=== PATIENT | female | born 1980 | race Caucasian/White ===

== ENCOUNTER 2022-03-22 17:26 | Emergency (ER) | payer MEDICAID, SELFPAY ==
[2022-03-22] VITALS (20 sets, daily range): BP systolic 121–161; BP diastolic 80–97; PULSE 95–192; RESP 6–20; TEMP 36.6; O2SAT 95–99
--- NOTE | 2022-03-22 17:15 | RT.EKG_ITS ---
APPROVED REPORT Exam: Resting ECG Reason for Exam: heart racing Patient Location: E HR:186 bpm ECG Measurements Heart Rate 186 AXIS IN 114 P -3 QRSd 88 QRS 22 QT 284 T 72 QTc 499 Conclusion Supraventricular tachycardia...V-rate>(220-age), QRSd<120 Repolarization abnormality, prob rate related...ST dep, T neg, tachycardia. SVT. 2mm ST depression in I, aVL, V3-6. No STEMI. I have reviewed and interpreted ECG and agree with software generated interpretation.
--- NOTE | 2022-03-22 17:45 | DI.RAD_ITS ---
Exam(s) XR PORTABLE CHEST AP EXAM: XR PORTABLE CHEST AP CLINICAL HISTORY: palpitations, r/o acute disease TECHNIQUE: 2D digital imaging was performed of the chest. One image was obtained. An AP view was ob tained. COMPARISON: No exams were available for comparison FINDINGS: MEDIASTINUM: Normal. HEART: Normal. PULMONARY VASCULATURE: Normal. LUNGS: Clear. PLEURAL SPACE: No pleural effusion or pneumothorax. BONE:Within normal limits for the patient's age. OTHER FINDINGS:Normal. IMPRESSION: No acute pulmonary findings. DATA REPOSITORY: RADIATION DOSE DELIVERED:
--- NOTE | 2022-03-22 17:45 | RT.EKG_ITS ---
APPROVED REPORT Exam: Resting ECG Reason for Exam: chest pain Patient Location: E HR:100 bpm ECG Measurements Heart Rate 100 AXIS RI 161 P 46 QRSd 91 QRS 35 QT 385 T 11 QTc 497 Conclusion Sinus tachycardia...rate> 99. Sinus. Normal axis. No STEMI. I have reviewed and interpreted ECG and agree with software generated interpretation.
[2022-03-22] MEDS: Adenosine 6 MG/2 ML VIAL (17:48)
--- NOTE | 2022-03-22 17:52 | W.ED.GENAD ---
Discharge Plan Disposition Patient Disposition: HOME Condition: Improving Discharge Details Clinical Impression: SVT (supraventricular tachycardia) Primary Care Provider: Elvia Navas ED Provider: Christina Cameron Home Meds and New Rx's Prescriptions: New metoprolol succinate 25 mg tablet extended release 24 hr 12.5 mg PO DAILY Qty: 30 0RF Discharge Instructions Instructions: Supraventricular Tachycardia (ED) Additional Instructions: Your symptoms today were due to an abnormal heart rhythm called supraventricular tachycardia. Outside of underlying heart disease, this can also be caused by caffeine, alcohol, stress or possibly heavy exertional activity. An order for an order for an outpatient radiation monitor has been placed. You will be contacted by the hospital regarding placement of this monitor. A prescription for the medication metoprolol was sent electronically to your pharmacy to take as directed if you develop any further symptoms of palpitations consistent with your episode today. You can try Valsalva maneuvers such as bearing down or blowing through a straw before taking this medication. Follow-up with your primary care doctor next week for reevaluation and for referral to cardiology for further evaluation if indicated. Return immediately to the emergency department if you develop any worsening or new concerning symptoms. Discharge Orders Other Ambulatory Orders: 14 Day [employer] (Routine) Timeframe: 10 Day Facility: [facility] - Location: Respiratory Therapy Ordered By: Christina Cameron Discharge Data Discharge Date/Time-TO BE ENTERED AT DEPARTURE: 03/22/22 20:19 Discharge Physician: Christina Cameron Medical Decision Making 1740 -- 41-year-old female with history of obesity and reported heart murmur presents for lightheadedness, palpitations and chest pain that started after biking today. Heart rate as high as 190s on the monitor on arrival. EKG appears consistent with SVT. No improvement with modified Valsalva maneuver x2. Her blood pressure is within normal limits. She is alert and oriented x3. She was given 6 mg of adenosine IV with conversion of rhythm to sinus with heart rate low 100s. Patient did endorse chest pain on arrival so will obtain screening labs, chest x-ray and give IV fluids. Labs and imaging reviewed. White blood cell count 15. Potassium 3.3, which was repleted PO. Anion gap 15 which normalized after IV fluids. Troponin negative. Chest x-ray negative for acute disease. 1999 -- Patient remains hemodynamically stable. Heart rate 80s. Blood pressure within normal limits. Pt states she feels much better and feels comfortable going home. Case discussed with [facility] cardiology who recommends Zio patch if possible or other radiation monitor outpatient -- If patient willing to take medication, can start on metoprolol succinate 12.5 mg once daily or if she would rather hold, can prescribe this prescription to take as needed -- Recommends follow-up with her primary care doctor for reevaluation and referral to cardiology as needed. Usual and customary return precautions given prior to discharge. Medical Records Medical records reviewed: Yes I reviewed the patient's medical records. Imaging Data Radiologic Study: Radiologist's impression: XR Chest Exam date and time: 03/22/2022 6:18 PM Age: 41 years old Clinical indication: Other: Palpitations TECHNIQUE: Imaging protocol: Radiologic exam of the chest. Views: 1 view. COMPARISON: No relevant prior studies available. FINDINGS: Lungs: No pulmonary consolidation is seen. Pleural spaces: No pleural effusion or pneumothorax is demonstrated. Heart/Mediastinum: Heart size is normal. The mediastinal contours appear normal. Bones/joints: The visualized bony structures appear grossly intact. IMPRESSION: No active disease is seen in the chest. Lab Data Lab results reviewed: Yes I reviewed the patient's lab results. Labs: Laboratory Tests Range/Units 03/22/22 03/22/22 03/22/22 17:40 17:40 19:05 WBC (4.4-10.8) 10^3/uL 15.30 H RBC (3.93-5.22) 10^6/uL 4.87 Hgb (11.2-15.7) g/dL 14.9 Hct (36.0-46.0) % 44.4 MCV (80-95) fL 91 MCH (27.0-33.0) pg 30.6 MCHC (32.0-36.0) % 33.6 RDW (11.7-14.6) % 12.1 Plt Count (130-400) 10^3/uL 386 MPV (8.0-11.0) fL 9.7 Immature Gran % 0.4 Neutrophils % 61.3 Lymphocytes % 30.3 Monocytes % 7.1 Eosinophils % 0.3 Basophils % 0.6 Nucleated RBC % (0.0-0.3) % 0.0 Absolute Neutrophils (1.2-6.7) 10^3/uL 9.38 H Absolute Lymphocytes (1.2-3.4) 10^3/uL 4.64 H Absolute Monocytes (0.1-0.8) 10^3/uL 1.09 H Absolute Eosinophils (0.0-0.7) 10^3/uL 0.05 Absolute Basophils (0.0-0.2) 10^3/uL 0.09 Sodium (136-145) mmol/L 138 141 Potassium (3.5-5.1) mmol/L 3.3 L 3.7 Chloride (98-107) mmol/L 101 107 Carbon Dioxide (21.0-32.0) mmol/L 21.8 25.1 Anion Gap (3-11) mmol/L 15.2 H 8.9 BUN (7-18) mg/dL 16 12 Creatinine (0.55-1.02) mg/dL 1.0 0.8 Estimated GFR/1.73 m2 (mL/min/1.73m2) >= 60.00 >= 60.00 Glucose (74-106) mg/dL 115 H 94 Calcium (8.5-10.1) mg/dL 9.5 8.7 Magnesium (1.8-2.4) mg/dL 1.9 Total Bilirubin (0.2-1.0) mg/dL 0.5 AST (15-37) U/L 32 ALT (14-59) U/L 39 Alkaline Phosphatase (46-116) U/L 69 Troponin I (<or=60) ng/L < 50 Total Protein (6.4-8.2) g/dL 7.9 Albumin (3.4-5.0) g/dL 4.2 ECG Data Attestation: I personally reviewed and interpreted this ECG (s) as follows: Interpretation: #1 --Rate of 186, SVT, ST depressions in anterior lateral leads. No STEMI. #2 --Rate of 100, sinus, no STEMI. HPI General Mode of arrival: ambulatory. Date/Time Provider Initiated Documentation: 03/22/22 17:30. Limitations to Documentation: no limitations. Information obtained by: patient. HPI Narrative: Patient is a 41-year-old female who presents with lightheadedness, palpitations and chest pain that started prior to arrival. Patient states she went biking earlier today and then sat down with friends. She states upon standing she noted dizziness, palpitations and substernal anterior chest pain. She denies any significant shortness of breath. She states she drank 1 beer last night. She denies any fever, vomiting, diarrhea or recent drug use. Related Data Home Medications Medication Instructions Recorded Confirmed metoprolol succinate 25 mg 12.5 mg PO DAILY #30 tabs 03/22/22 tablet,extended release 24 hr Previous Rx's Medication Instructions Recorded metoprolol succinate 25 mg 12.5 mg PO DAILY #30 tabs 03/22/22 tablet,extended release 24 hr Allergies Allergy/AdvReac Type Severity Reaction Status Date / Time No Known Allergies Allergy Unverified 03/22/22 17:52 General Stated Complaint: Palpitatns JEY: 2 Review of Systems All systems reviewed & are unremarkable except as noted in HPI and below Constitutional Constitutional: Denies chills, Denies excessive sweating, Denies fatigue, Denies fever(s), Denies weakness and Denies weight loss Eyes Eyes: Reports system reviewed and no additional complaints, except as documented and Denies blurry vision ENT Ears, Nose, Mouth, and Throat: Denies vertigo, Reports dizziness, Denies otalgia, Denies nasal congestion, Denies sore throat and Denies throat swelling Cardiovascular Cardiovascular: Reports chest pain, Denies syncope, Reports rapid heart rate and Denies dyspnea Respiratory Respiratory: Denies chest congestion, Denies cough, Denies pain on inspiration and Denies dyspnea Gastrointestinal Gastrointestinal: Denies abdominal pain, Denies diarrhea and Denies vomiting Genitourinary Genitourinary: Denies hematuria, Denies dysuria and Denies flank pain Musculoskeletal Musculoskeletal: Denies back pain and Denies joint swelling Integumentary/Breasts Skin/Breast: Denies lesions and Denies rash Neurologic Neurologic: Denies behavioral changes, Denies confusion, Denies vertigo, Reports dizziness, Denies syncope, Denies localized weakness and Denies weakness Psychiatric Psychiatric: Denies behavioral changes, Denies confusion and Denies depression Endocrine Endocrine: Denies excessive sweating and Denies fatigue Hematologic/Lymphatic Hematologic/Lymphatic: Denies easy bruising and Denies lymphadenopathy Allergic/Immunologic Allergic/Immunologic: Denies throat swelling PFSH All Active Problems (Updated 03/22/22 @ 19:13 by Christina Cameron DO) SVT (supraventricular tachycardia) (Chronic) Medical History (Updated 03/22/22 @ 19:13 by Christina Cameron DO) Heart murmur Obesity Surgical History (Updated 03/22/22 @ 18:16 by Christina Cameron DO) H/O section Social History Smoking/Tobacco Use Status: Never Smoking risk assessment performed?: Yes Alcohol Intake: never Substance use type: does not use Do you feel safe at home: Yes Do you feel safe in your relationship?: Yes Exam Const General: cooperative and healthy appearing Orientation: alert and awake HENMT Head: normal to inspection Ears: hearing grossly normal bilaterally and external ears normal General nose exam: external nose normal Face and sinus: normal facial exam Mouth: oral mucosae normal Teeth and gingiva: dentition normal Throat: posterior oropharynx normal Eyes General: appearance normal, both eyes and all related structures Eyelids: eyelids normal Pupils: PERRL EOM: EOM intact bilaterally Neck Neck: normal visual inspection Lymphatic: no lymphadenopathy noted Chest Chest: normal inspection of the chest Resp Effort & Inspection: normal respiratory effort and able to speak in complete sentences Auscultation: clear to auscultation bilaterally Cardio Rate: tachycardic Rhythm: regular rhythm GI Inspection: normal to inspection Palpation: soft, not firm, no guarding, no hepatosplenomegaly, no masses and nontender Auscultation: normal bowel sounds Skin General skin exam: no rashes or lesions noted Neuro General: patient alert and patient awake Cognition: normal cognition Speech: speech normal Gait: normal gait Motor: muscle tone normal throughout Sensory Exam: no sensory deficits noted Extrem General: normal to inspection, full ROM and capillary refill normal Psych Appearance: grossly normal Mental Status: mental status grossly normal Speech and Movement: speech and movement normal Affect: normal affect Thought Process: normal Course Vital Signs Vital signs: Vital Signs Pulse 185 H 03/22/22 17:41 Respiratory Rate 18 03/22/22 17:41 Blood Pressure 121/97 H 03/22/22 17:41 Pulse Oximetry 99 03/22/22 17:41 Pulse 185 H 03/22/22 17:41 Respiratory Rate 18 03/22/22 17:41 Blood Pressure 121/97 H 03/22/22 17:41 Blood Pressure Position Supine 03/22/22 17:41 Pulse Oximetry 99 03/22/22 17:41 Oxygen Delivery Method Room Air 03/22/22 17:41 Oxygen Flow Rate 0 03/22/22 17:41 Pain Level 0 03/22/22 17:41
[2022-03-22 18:06] LABS: Abs Immature Grans 0.06 10^3/uL (0.0-0.06); Absolute Basophil Count 0.09 10^3/uL (0.0-0.2); Absolute Eosinophil Count 0.05 10^3/uL (0.0-0.7); Absolute Monocyte Count 1.09 10^3/uL (0.1-0.8); Absolute Neutrophil Count 9.38 10^3/uL (1.2-6.7); Basophils % 0.6; Eosinophils % 0.3; HCT 44.4 % (36.0-46.0); HGB 14.9 g/dL (11.2-15.7); Immature Grans % 0.4; Lymphocytes % 30.3; MCH 30.6 pg (27.0-33.0); MCHC 33.6 % (32.0-36.0); MCV 91 fL (80-95); MPV 9.7 fL (8.0-11.0); Monocytes % 7.1; Neutrophils % 61.3; Platelet Count 386 10^3/uL (130-400); RBC 4.87 10^6/uL (3.93-5.22); RDW 12.1 % (11.7-14.6); RDW-SD 40.3 fL
[2022-03-22 18:13] LABS: Absolute Lymphocyte Count 4.64 10^3/uL (1.2-3.4)
[2022-03-22 18:26] LABS: ALT 39 U/L (14-59); AST 32 U/L (15-37); Albumin 4.2 g/dL (3.4-5.0); Alkaline Phosphatase 69 U/L (46-116); Anion Gap 15.2 mmol/L (3-11); BUN 16 mg/dL (7-18); Bilirubin, Total 0.5 mg/dL (0.2-1.0); CO2 21.8 mmol/L (21.0-32.0); Calcium 9.5 mg/dL (8.5-10.1); Chloride 101 mmol/L (98-107); Glucose 115 mg/dL (74-106); Magnesium 1.9 mg/dL (1.8-2.4); Potassium 3.3 mmol/L (3.5-5.1); Sodium 138 mmol/L (136-145); Total Protein 7.9 g/dL (6.4-8.2); Troponin I < 50 ng/L (<or=60)
[2022-03-22] MEDS: Normal Saline 1,000 ML 1000 ML IV (19:00)
[2022-03-22] MEDS: Potassium Chloride 20 MEQ TABCR 40 MEQ PO (19:08)
--- NOTE | 2022-03-22 19:09 | DI.VRAD_ITS ---
PROCEDURE INFORMATION: Exam: XR Chest Exam date and time: 03/22/2022 6:18 PM Age: 41 years old Clinical indication: Other: Palpitations TECHNIQUE: Imaging protocol: Radiologic exam of the chest. Views: 1 view. COMPARISON: No relevant prior studies available. FINDINGS: Lungs: No pulmonary consolidation is seen. Pleural spaces: No pleural effusion or pneumothorax is demonstrated. Heart/Mediastinum: Heart size is normal. The mediastinal contours appear normal. Bones/joints: The visualized bony structures appear grossly intact. IMPRESSION: No active disease is seen in the chest. Dictated and Authenticated by: Omi Curran MD. Ordering:MAURO Vasquez MD
[2022-03-22 19:31] LABS: Anion Gap 8.9 mmol/L (3-11); BUN 12 mg/dL (7-18); CO2 25.1 mmol/L (21.0-32.0); CREATININE 0.8 mg/dL (0.55-1.02); Calcium 8.7 mg/dL (8.5-10.1); Chloride 107 mmol/L (98-107); Glucose 94 mg/dL (74-106); Potassium 3.7 mmol/L (3.5-5.1); Sodium 141 mmol/L (136-145)
== END 2022-03-22 20:19 | disposition home or self-care (01) ==
PROVIDERS: Emergency Provider Physician Assistant; PCP Family Medicine
DX: I47.1 Supraventricular tachycardia (principal); R07.9 Chest pain, unspecified; R00.2 Palpitations
CPT/HCPCS: 36415; 80048; 80053; 81025; 93005; 96361; 96374; 99284; 71045; 83735; 84484; 85025; 93010; J0153

== ENCOUNTER 2022-03-31 02:44 | Outpatient (CLI) | payer MEDICAID, SELFPAY ==
--- NOTE | 2022-04-28 12:24 | W.CARDEVENT ---
Date of service: 04/28/22 Time of Service: 12:24 Cardiac Event Recorder Referring Provider:: Christina Cameron Indications:: Supraventricular tachycardia Cardiac Event Note: This is a 14-day cardiac event monitor, ordered for supraventricular tachycardia Rhythm throughout was sinus with an average heart rate of 73. Minimum was 44, maximum 152 there were very rare isolated atrial and ventricular ectopic beats. There was 1 atrial triplet There was no atrial fibrillation, no high-grade AV block, no pauses greater than 3 seconds Multiple patient's symptoms were reported. These corresponded to atrial and ventricular ectopic beats and to sinus tachycardia at 120
== END 2022-03-31 02:45 | disposition home or self-care (01) ==
LOC: RT 02:44
PROVIDERS: PCP Naturopath; Visit Provider Physician Assistant
DX: I47.1 Supraventricular tachycardia (principal); R00.0 Tachycardia, unspecified
CPT/HCPCS: 93246